=== PATIENT | male | born 1955 | race Caucasian/White ===

== ENCOUNTER → 2025-05-28 | Outpatient (CLI) | payer MEDICARE ==
[~2025-05-28] MED LIST: D200CAP2 PO; LOSA50TA28 PO; METF-839 PO; RELU120T PO; ROSU5TAB49 PO
== END ==
LOC: M ONCR 12:48
PROVIDERS: ATTEND General Practice
DX: C61 Malignant neoplasm of prostate (principal)

== ENCOUNTER → 2025-06-17 | Outpatient (CLI) | payer MEDICARE ==
[~2025-06-17] VITALS: Ht 185.4 cm; Wt 84.3 kg
[~2025-06-17] MED LIST changes: +ATIV1TAB10 PO; +CIPR750T2 PO
[2025-06-17 15:33] VITALS: BP 126/80; O2SAT 100
[2025-06-17] MEDS: LIDOCAINE VISCOUS 2% SOLN 15 ML UDC XX ONE (15:37)
[2025-06-17] MEDS: LIDOCAINE 2% MDV 20 ML VIAL XX ONE (15:40)
[2025-06-17 15:59] VITALS: BP 155/82; O2SAT 98
== END ==
LOC: M ONCR 15:16
PROVIDERS: ATTEND General Practice
DX: C61 Malignant neoplasm of prostate (principal)
CPT/HCPCS: 55874; 55876; A4648; C1889